=== PATIENT | female | born 1980 | race Caucasian/White ===

== ENCOUNTER 2017-03-22 11:24 | Emergency (ER) | payer MEDICAID, OTHER ==
[~2017-03-22] VITALS: Ht 167.6 cm; Wt 52.0 kg
[~2017-03-22 11:24] MED LIST: ALBU8.5H5 IH; [UNRECOGNIZED DRUG - CODE] PO
[2017-03-22 11:25] VITALS: Ht 167.6 cm; Wt 52.0 kg
--- NOTE | 2017-03-22 11:28 | NUR ---
DR NELSON IN
--- OUTSIDE RECORDS SUMMARY | 2017-03-22 11:28 | XMS REPORT ---
Author Author GENERATED, SYSTEM Organization Unknown Address Unknown Phone Unavailable Care Team Providers Care Golf Ball Molder Name Role Phone UNASSIGNED DOCTOR , DOCTOR PP [phone] Reason For Visit Chief Complaint SUBCUTANEOUS MASS - LIPUMA? Social History Functional Status Vital Signs Results Problems Encounter Diagnosis No relevant problems exist. Encounters Encounter Diagnosis No relevant problems exist. Plan of Care Procedures No relevant procedures performed. Immunizations No immunizations administered or ordered. Hospital Course Hospital Discharge Instructions Allergies, Adverse Reactions, Alerts * Latex Allergy has not been assessed. * IV Contrast Allergy has not been assessed. Medication Medication reconciliation has not been performed.
--- OUTSIDE RECORDS SUMMARY | 2017-03-22 11:28 | XMS REPORT ---
Author Author FriendBrook [employer] Address Unknown Phone Unavailable Care Team Providers Care Hospitality Internship Name Role Phone Friend, Brook CP Unavailable Allergies No Known Allergies Problems Problem Type Condition Code Onset Dates Condition Status Problem Anxiety and depression F41.9 Active Problem Mild persistent asthma J45.30 Active Problem Bipolar disorder F31.9 Active Problem Unspecified lump in breast N63 Active Problem Cigarette smoker F17.210 Active Medications No Known Medications Results No Known Results Summary Purpose eClinicalWorks Submission
--- OUTSIDE RECORDS SUMMARY | 2017-03-22 11:28 | XMS REPORT ---
Author Author Friend, Brook Organization [employer] Address Unknown Phone Unavailable Care Team Providers Care Falsework Builder Name Role Phone Friend, Brook CP Unavailable Allergies, Adverse Reactions, Alerts Substance Reaction Event Type Neurontin Info Not Available Drug Allergy Darvocet A500 Info Not Available Drug Allergy Chantix vomiting Drug Allergy Problems Problem Type Condition Code Onset Dates Condition Status Assessment Vaginal discharge N89.8 Active Assessment Screening for HIV (human immunodeficiency virus) Z11.4 Active Assessment Need for hepatitis B screening test Z11.59 Active Assessment Needs flu shot Z23 Active Problem Anxiety and depression F41.9 Active Problem Mild persistent asthma J45.30 Active Problem Bipolar disorder F31.9 Active Assessment Screening for chlamydial disease Z11.8 Active Assessment Screen for STD (sexually transmitted disease) Z11.3 Active Problem Unspecified lump in breast N63 Active Problem Cigarette smoker F17.210 Active Medications Medication Code System Code Instructions Start Date End Date Status Dosage Misc. Devices NDC 0 . spacer for inhaler dx: J45.20 Aug 30, 2015 as directed Risperidone [facility] [address]-58 2 MG Orally Once a day April 25, 2016 1 tablet Estradiol [facility] 19369020372 1 TAKE 1 TABLET BY MOUTH DAILY ProAir HFA [facility] 01352911069 108 (90 Base) MCG/ACT Inhalation every 4 hrs prn 2 puffs as needed Procedures Procedure Coding System Code Date IMMUNIZATION ADMIN CPT-4 25430 Oct 10, 2016 CHYLMD TRACH, DNA, AMP PROBE CPT-4 39267 Oct 10, 2016 FLU VACC 4 RAAD 3 YRS PLUS IM CPT-4 17914 Oct 10, 2016 OFFICE VISIT EST PATIENT LEVEL 3 CPT-4 44250 Oct 10, 2016 ACUTE HEPATITIS PANEL CPT-4 84538 Oct 10, 2016 SMEAR, WET MOUNT, SALINEINK CPT-4 23740 Oct 10, 2016 N.GONORRHOEAE, DNA, AMP PROB CPT-4 74225 Oct 10, 2016 HIV-1HIV-2 1 RESULT ANTBDY CPT-4 97587 Oct 10, 2016 SYPHILIS TEST NON-TREP QUAL CPT-4 16730 Oct 10, 2016 Vital Signs Date/Time: Oct 10, 2016 BMI 18.85 Index Weight 116.8 lbs Height 5 ft 6 in in Blood Pressure Diastolic 84 mm Hg Blood Pressure Systolic 126 mm Hg Cardiac Monitoring Heart Rate 77 /min Temperature 98.6 F Oximetry 98 % Respiratory Rate 18 /min Results Name Result Date Reference Range Unit Abnormality Flag RPR (use Z11.3) ----RPR Non-reactive 20161010 Chlam/GC Male/Fem Ncwa-gg-Ajtf Urine (genprobe) C-Z11.8,G-Z11.3 ----Chlam/ GC Nucleic Acid Screen Source: Genital Collected: 10/10/16 15:13 [id number] OTHER-IMMUNIZATION ADMIN HIV 1&2 (use Z11.4) ----HIV Antigen/Antibody Combo Negative [id number] Hepatitis Panel (use Z11.59 to screen) ----Hepatitis C Total Antibody Negative 20161010 ----Hepatitis A Antibody IGM Negative 20161010 ----Hepatitis B Surface Antigen Negative 20161010 ----Hepatitis Core Ab IGM Negative 20161010 Genital Wet Prep - send out ----Genital Wet Prep Source: Genital Collected: 15:13 [id number] Immunizations Vaccine Administration Date *Fluzoeugenia, private, 3+ yrs, 0.5mL, quad vial, Oct 10, 2016 Summary Purpose eClinicalWorks Submission
--- OUTSIDE RECORDS SUMMARY | 2017-03-22 11:28 | XMS REPORT ---
Author Author Friend, Brook Fountain [employer] Address Unknown Phone Unavailable Care Team Providers Care Design Quality Engineer Name Role Phone Friend, Brook CP Unavailable Allergies No Known Allergies Problems Problem Type Condition Code Onset Dates Condition Status Problem Anxiety and depression F41.9 Active Problem Mild persistent asthma J45.30 Active Problem Bipolar disorder F31.9 Active Problem Unspecified lump in breast N63 Active Problem Cigarette smoker F17.210 Active Medications Medication Code System Code Instructions Start Date End Date Status Dosage Metronidazole [facility] [address]-24 500 MG Orally BID May 30, 2016 June 06, 2016 1 tablet Results No Known Results Summary Purpose eClinicalWorks Submission
--- OUTSIDE RECORDS SUMMARY | 2017-03-22 11:28 | XMS REPORT ---
Author Carlie Beltrán Organization [employer] Address Unknown Phone Unavailable Care Team Providers Care Sprinkling System Installer Name Role Phone Carlie Chavez CP Unavailable Allergies, Adverse Reactions, Alerts Substance Reaction Event Type Neurontin Info Not Available Drug Allergy Darvocet A500 Info Not Available Drug Allergy Chantix vomiting Drug Allergy Problems Problem Type Condition Code Onset Dates Condition Status Problem Anxiety and depression F41.9 Active Problem Mild persistent asthma J45.30 Active Problem Bipolar disorder F31.9 Active Assessment Acute bronchitis J20.9 Active Problem Unspecified lump in breast N63 Active Problem Cigarette smoker F17.210 Active Medications Medication Code System Code Instructions Start Date End Date Status Dosage PredniSONE [facility] [address]-75 20 MG Orally Once a day Jun 19, 2016 Jun 24, 2016 2 tablets ProAir HFA [facility] [address]-30 108 (90 Base) MCG/ACT Inhalation every 4 hrs prn 2 puffs as needed Promethazine-Codeine [facility] [address]-04 6.25-10 MG/5ML Orally every 6 hrs Jun 19, 2016 Jun 24, 2016 5 ml as needed Misc. Devices ND 0 . spacer for inhaler dx: J45.20 Aug 30, 2015 as directed Risperidone [facility] [address]-08 2 MG Orally Once a day April 25, 2016 1 tablet Azithromycin [facility] [address]-18 250 MG Orally Once a day Jun 19, 2016 Jun 24, 2016 2 tablets on the first day, then 1 tablet daily for 4 days Albuterol Sulfate HFA [facility] 31127704326 90 mcg inhaler aerosol Inhalation every 4 hrs prn inhale 2 puffs as needed every 4 hours for wheezeing Estradiol [facility] 78969715184 1 TAKE 1 TABLET BY MOUTH ONCE DAILY Procedures Procedure Coding System Code Date OFFICE VISIT EST PATIENT LEVEL 4 CPT-4 87090 Jun 19, 2016 Vital Signs Date/Time: Jun 19, 2016 BMI 18.60 Index Weight 115 lb 4 oz lbs Height 5 ft 6 in in Blood Pressure Diastolic 70 mm Hg Blood Pressure Systolic 112 mm Hg Cardiac Monitoring Heart Rate 70 /min Temperature 98.2 F Oximetry 99 % Results No Known Results Summary Purpose eClinicalWorks Submission
--- OUTSIDE RECORDS SUMMARY | 2017-03-22 11:28 | XMS REPORT ---
Author Author Katie Youngblood Organization [facility] Address [address] [facility] [place] [address] Care Team Providers Care Shell Sorter Name Role Phone Katie Youngblood Unavailable [phone] PROBLEMS Type Condition ICD9-CM Code [id number] Code Onset Dates Condition Status SNOMED Code Assessment Abnormal urine finding R82.90 Jan, Active 182844999 Assessment Urinary frequency R35.0 Jan, Active 043282327 Problem Bipolar disorder F31.9 Active 21246546 Problem Anxiety and depression F41.9 Active 651580917 Problem Cigarette smoker F17.210 Active 76930494 Assessment Vomiting R11.10 Jan, Active 707796442 Problem Mild persistent asthma J45.30 Active 069472650 Problem Unspecified lump in breast N63 Active 78497490 ALLERGIES Substance Reaction Event Type Date Status Neurontin Unknown Drug Allergy Jan, Active Darvocet A500 Unknown Drug Allergy Jan, Active Chantix vomiting Drug Allergy Jan, Active SOCIAL HISTORY No smoking Hx information available PLAN OF CARE Activity Details Pending Test CBC With Platelet and Differential Pending Test Comprehensive Metabolic Panel (CMP) Pending Test Urine Culture prn,Reason: VITAL SIGNS Height 5 ft 6 in in 2017-01-07 Weight 117 lb 8 oz lbs 2017-01-07 BMI 18.96 kg/m2 2017-01-07 Temperature 98.8 degrees Fahrenheit 2017-01-07 Heart Rate 67 /min 2017-01-07 Oximetry 98 % 2017-01-07 Blood pressure systolic 100 mm Hg 2017-01-07 Blood pressure diastolic 68 mm Hg 2017-01-07 MEDICATIONS Medication Instructions Dosage Frequency Start Date End Date Duration Status ProAir HFA 108 (90 Base) MCG/ACT Inhalation every 4 hrs prn 2 puffs as needed 90 Active Estradiol 1 TAKE 1 TABLET BY MOUTH DAILY 90 Active Misc. Devices . spacer for inhaler dx: J45.20 as directed Aug, 30 days Active Risperidone 2 MG Orally Once a day 1 tablet 24h Apr, 30 day(s) Active AZO Urinary Pain Relief 95 MG Orally Three times a day 2 tablets after meals 8h Jan, Active Promethazine HCl 25 MG Orally every 8 hrs 1 tablet as needed 8h Jan, Jan, 10 days Active Ciprofloxacin HCl 250 MG Orally every 12 hrs 1 tablet 12h Jan, Jan, 3 days Active RESULTS Name Result Date Reference Range Urinalysis (UA) - IH 2017-01-07 Color yellow Character cloudy Blood trace-intact Glucose neg 0 - 0 Bilirubin small Ketones neg 0 - 0 Specific [place] 1.025 pH 6.5 Leukocytes neg Protein 30mg 0 - 0 Nitrates neg Urobilirubin 0.2 0.2 - 1 Venipuncture 2017-01-07 CBC With Platelet and Differential 2017-01-07 WBC 7.5 4.8-10.8 RBC 4.61 4.00-5.20 HGB 14.2 12.0-18.0 HCT 43.0 37.0-47.0 MCV 93.3 82.0-99.0 MCH 30.8 27.0-32.0 MCHC 33.0 32.0-36.0 RDW 13.2 11.5-14.5 MPV 10.8 8.8-14.8 Platelet Count 202 150-400 Immature Granulocytes 0.1 0.0-1.0 Absolute Neutrophils 5.04 1.90-7.00 Absolute Lymphocytes 1.81 0.80-3.30 Absolute Monocytes 0.45 0.30-1.00 Absolute Eosinophils 0.18 0.00-0.50 Absolute Basophils 0.03 0.00-0.20 Neutrophils 67 51-75 Lymphocytes 24 20-46 Monocytes 6 4-11 Eosinophils 2 0-4 Basophils 0 0-2 Comprehensive Metabolic Panel (CMP) 2017-01-07 Glucose 85 70-99 BUN 17 7-19 Creatinine 0.79 0.57-1.11 Calcium 9.2 8.4-10.2 Sodium 140 135-144 Potassium 4.2 3.5-5.2 Chloride 106 99-111 CO2 29 22-31 Albumin 4.3 3.5-5.0 Bilirubin Total 0.9 0.2-1.2 Alkaline Phosphatase 55 40-150 Protein 6.8 6.1-7.7 ALT (SGPT) 11 0-55 AST (SGOT) 15 5-34 Anion Gap 5 3-20 Globulin 2.5 1.8-4.0 eGFR 2017-01-07 eGFR >60 >60 PROCEDURES Procedure Date Ordered Related Diagnosis Body Site URINALYSIS NONAUTO WO SCOPE January 07, 2017 URINE CULTURECOLONY COUNT January 07, 2017 COMPLETE CBC WAUTO DIFF WBC January 07, 2017 OFFICE VISIT EST PATIENT LEVEL 4 January 07, 2017 ROUTINE VENIPUNCTURE January 07, 2017 COMPREHEN METABOLIC PANEL January 07, 2017 IMMUNIZATIONS No Known Immunizations
--- OUTSIDE RECORDS SUMMARY | 2017-03-22 11:28 | XMS REPORT | Continuity of Care Document ---
Author Author [facility] Organization [facility] Address Unknown Phone Unavailable Care Team Providers Care Cook Mayonnaise Name Role Phone Unverified, Unverified Primary Care Physician Unavailable Source Comments Some departments are not documenting in the electronic medical record. If you do not see the information that you expected, contact Release of Information in the Health Information Management department at [phone] for further assistance in locating additional records.[facility] Active Allergies and Adverse Reactions Allergen Noted Date Severity Reactions Comments Darvocet 04/04/2009 Medium NAUSEA AND VOMITING Neurontin 04/04/2009 High SEIZURES Current Medications Prescription Sig. Disp. Refills Start End Date Status Date multivitamin (THERAGRAN) Take 1 Tab by mouth Active per tablet Daily. docusate (COLACE) 100 mg Take 100 mg by mouth Active capsule Twice Daily. folic acid (FOLVITE) 1 mg Take 1 mg by mouth Daily. Active tablet Active Problems Comments Currently Estimated Date of Delivery Yes No additional problems on file Social History Tobacco Use Types Packs/Day Years Used Date Former Smoker Alcohol Use Drinks/Week oz/Week Comments No Last Filed Vital Signs Vital Sign Reading Time Taken Blood Pressure 100/53 04/05/2009 8:15 AM CDT Pulse 58 04/05/2009 8:15 AM CDT Temperature 36.9 C (98.5 F) 04/04/2009 9:20 PM CDT Respiratory Rate - - Height 0.66 m (2' 1.98") 04/04/2009 9:20 PM CDT Weight 61.236 kg (135 lb) 04/04/2009 9:20 PM CDT Body Mass Index 140.58 04/04/2009 9:20 PM CDT Oxygen Saturation - - Plan of Care Health Maintenance Due Date Last Done Comments Physical (Comprehensive) 1989 Exam Pertussis Vaccine 1993 Tetanus Vaccine 1999 Cervical Cancer Screening 2003 Influenza Vaccine 07/10/2017 Results from Last 3 Months Not on file
--- OUTSIDE RECORDS SUMMARY | 2017-03-22 11:28 | XMS REPORT ---
Author Author FriendBrook [employer] Address Unknown Phone Unavailable Care Team Providers Care Merchandising Coordinator Name Role Phone Friend, Brook CP Unavailable Allergies No Known Allergies Problems Problem Type Condition Code Onset Dates Condition Status Problem Anxiety and depression F41.9 Active Problem Mild persistent asthma J45.30 Active Problem Bipolar disorder F31.9 Active Problem Unspecified lump in breast N63 Active Problem Cigarette smoker F17.210 Active Medications Medication Code System Code Instructions Start Date End Date Status Dosage ProAir HFA [facility] 11827282500 108 (90 Base) MCG/ACT Inhalation every 4 hrs prn 2 puffs as needed Albuterol Sulfate HFA [facility] 64218899294 90 mcg inhaler aerosol Inhalation every 4 hrs prn inhale 2 puffs as needed every 4 hours for wheezeing Misc. Devices ND 0 . spacer for inhaler dx: J45.20 Aug 30, 2015 as directed Risperidone [facility] [address]-81 2 MG Orally Once a day April 25, 2016 1 tablet Estradiol [facility] 77097536472 1 TAKE 1 TABLET BY MOUTH DAILY Results No Known Results Summary Purpose eClinicalWorks Submission
--- OUTSIDE RECORDS SUMMARY | 2017-03-22 11:28 | XMS REPORT ---
Author Author Friend, Brook Fountain [employer] Address Unknown Phone Unavailable Care Team Providers Care Special Education Associate Name Role Phone Friend, Brook CP Unavailable Allergies, Adverse Reactions, Alerts Substance Reaction Event Type Neurontin Info Not Available Drug Allergy Darvocet A500 Info Not Available Drug Allergy Chantix vomiting Drug Allergy Problems Problem Type Condition Code Onset Dates Condition Status Problem Mild intermittent asthma J45.20 Active Problem Cigarette smoker F17.210 Active Problem Unspecified lump in breast N63 Active Assessment Screen for STD (sexually transmitted disease) Z11.3 Active Assessment Encounter for routine gynecological examination Z01.419 Active Assessment Vaginal pruritus L29.8 Active Medications Medication Code System Code Instructions Start Date End Date Status Dosage Estradiol ND 38381587917 1 TAKE 1 TABLET BY MOUTH ONCE DAILY Misc. Devices ND 0 . spacer for inhaler dx: J45.20 Aug 30, 2015 as directed Albuterol Sulfate HFA [facility] 71710303461 90 mcg inhaler aerosol INHALE 2 PUFFS NEEDED EVERY 4 HOURS FOR WHEEZEING Wellbutrin XL [facility] [address]-69 150 MG Orally twice a day Aug 30, 2015 1 tablet in the morning ProAir HFA [facility] [address]-91 108 (90 Base) MCG/ACT Inhalation every 4 hrs prn 2 puffs as needed Procedures Procedure Coding System Code Date N.GONORRHOEAE, DNA, AMP PROB CPT-4 17385 Nov 27, 2015 SMEAR, WET MOUNT, SALINEINK CPT-4 63223 Nov 27, 2015 CHYLMD TRACH, DNA, AMP PROBE CPT-4 51938 Nov 27, 2015 EST PREV AGE 18-39 CPT-4 24101 Nov 27, 2015 SYPHILIS TEST NON-TREP QUAL CPT-4 97173 Nov 27, 2015 HIV-1HIV-2 1 RESULT ANTBDY CPT-4 43954 Nov 27, 2015 ROUTINE VENIPUNCTURE CPT-4 92545 Nov 27, 2015 ACUTE HEPATITIS PANEL CPT-4 52954 Nov 27, 2015 Vital Signs Date/Time: Nov 27, 2015 BMI 19.08 Index Weight 118.2 lbs Height 66 in Blood Pressure Diastolic 72 mm Hg Blood Pressure Systolic 110 mm Hg Cardiac Monitoring Heart Rate 60 /min Temperature 98.6 F Oximetry 99 % Respiratory Rate 16 /min Results Name Result Date Reference Range Unit Abnormality Flag HIV 1&2 ----HIV Antigen/Antibody Combo Negative 20151127 RPR ----RPR Non-reactive 20151127 Chlam/GC Male/Female Hcao-gf-Lqjk Urine (genprobe) ----Chlam/ GC Nucleic Acid Screen Source: Genital Collected: 11/27/15 17:04 [id number] Hepatitis Panel ----Hepatitis C Total Antibody Negative 20151127 ----Hepatitis B Surface Antigen Negative 20151127 ----Hepatitis A Antibody IGM Negative 20151127 ----Hepatitis Core Ab IGM Negative 20151127 Genital Wet Prep - send out ----Genital Wet Prep Source: Genital Collected: 17:04 [id number] Venipuncture Summary Purpose eClinicalWorks Submission
--- OUTSIDE RECORDS SUMMARY | 2017-03-22 11:28 | XMS REPORT ---
Author Author Friend, Brook Fountain [facility] Address [address] [place], [place] [address] Care Team Providers Care Resident Program Specialist Name Role Phone FriendBrook Unavailable [phone] PROBLEMS Type Condition ICD9-CM Code [id number] Code Onset Dates Condition Status SNOMED Code Problem Bipolar disorder F31.9 Active 41089690 Problem Anxiety and depression F41.9 Active 770915724 Problem Cigarette smoker F17.210 Active 27524490 Assessment Bacterial vaginosis N76.0 Nov, Active 021366665 Problem Mild persistent asthma J45.30 Active 656952333 Problem Unspecified lump in breast N63 Active 11908888 ALLERGIES Unknown Allergies SOCIAL HISTORY No smoking Hx information available PLAN OF CARE VITAL SIGNS MEDICATIONS Medication Instructions Dosage Frequency Start Date End Date Duration Status Metronidazole 500 MG Orally Twice a day 1 tablet 12h Nov, Nov, 07 days Active Metronidazole 0.75 % Vaginal once a week for 8 weeks 1 application at bedtime Nov, March, 60 days Active RESULTS No Results PROCEDURES No Known procedures IMMUNIZATIONS No Known Immunizations
--- OUTSIDE RECORDS SUMMARY | 2017-03-22 11:28 | XMS REPORT ---
Author Author Friend, Brook Fountain [facility] Address [address] [facility] [place] [id number] Care Team Providers Care Mold Stamper Name Role Phone Friend, Brook Unavailable [phone] PROBLEMS Type Condition ICD9-CM Code [id number] Code Onset Dates Condition Status SNOMED Code Assessment Underweight R63.6 Feb, Active 277986199 Problem Unspecified lump in breast N63 Active 33609942 Problem Cigarette smoker F17.210 Active 41117945 Assessment Screening for thyroid disorder Z13.29 Feb, Active 394297355 Problem Constipation K59.00 Active 98480880 Problem Anxiety disorder F41.9 Active 277191095 Problem Anxiety and depression F41.9 Active 046855614 Problem Mild persistent asthma J45.30 Active 850481266 Problem Spotting N92.0 Active 3504171 Problem Bipolar disorder F31.9 Active 62203784 ALLERGIES Substance Reaction Event Type Date Status Neurontin Unknown Drug Allergy Feb, Active Darvocet A500 Unknown Drug Allergy Feb, Active Chantix vomiting Drug Allergy Feb, Active SOCIAL HISTORY No smoking Hx information available PLAN OF CARE Activity Details Pending Test Free T4 Pending Test Total T3 Pending Test TSH Pending Test Venipuncture 6 Months, prn,Reason: VITAL SIGNS Height 5 ft 6 in in 2017-02-13 Weight 118 lbs 2017-02-13 BMI 19.04 kg/m2 2017-02-13 Temperature 98.4 degrees Fahrenheit 2017-02-13 Heart Rate 57 /min 2017-02-13 Respiratory Rate 18 /min 2017-02-13 Oximetry 98 % 2017-02-13 Blood pressure systolic 112 mm Hg 2017-02-13 Blood pressure diastolic 74 mm Hg 2017-02-13 MEDICATIONS Medication Instructions Dosage Frequency Start Date End Date Duration Status BusPIRone HCl 10 MG Orally Twice a day 1 tablet 12h Feb, 30 days Active AZO Urinary Pain Relief 95 MG Orally Three times a day 2 tablets after meals 8h Jan, Active Misc. Devices . spacer for inhaler dx: J45.20 as directed Aug, 30 days Active Risperidone 2 MG Orally Once a day 1 tablet 24h Apr, 30 day(s) Active Estradiol 1 TAKE 1 TABLET BY MOUTH DAILY 30 Active ProAir HFA 108 (90 Base) MCG/ACT Inhalation every 4 hrs prn 2 puffs as needed 30 Active RESULTS No Results PROCEDURES Procedure Date Ordered Related Diagnosis Body Site ASSAY OF FREE THYROXINE February 13, 2017 ASSAY, TRIIODOTHYRONINE (T3) February 13, 2017 ROUTINE VENIPUNCTURE February 13, 2017 ASSAY THYROID STIM HORMONE February 13, 2017 OFFICE VISIT EST PATIENT LEVEL 3 February 13, 2017 IMMUNIZATIONS No Known Immunizations
--- OUTSIDE RECORDS SUMMARY | 2017-03-22 11:28 | XMS REPORT ---
Author Author FriendBrook [employer] Address Unknown Phone Unavailable Care Team Providers Care Quarter Section Ironer Name Role Phone FriendBrook CP Unavailable Allergies No Known Allergies Problems Problem Type Condition Code Onset Dates Condition Status Problem Mild intermittent asthma J45.20 Active Problem Cigarette smoker F17.210 Active Problem Unspecified lump in breast N63 Active Medications No Known Medications Results No Known Results Summary Purpose eClinicalWorks Submission
--- OUTSIDE RECORDS SUMMARY | 2017-03-22 11:28 | XMS REPORT ---
Author Author Friend, Brook Fountain [facility] Address [address] [place], [place] [address] Care Team Providers Care Health Care Attorney Name Role Phone FriendBrook Unavailable [phone] PROBLEMS Type Condition ICD9-CM Code PZC19-GV Code Onset Dates Condition Status SNOMED Code Problem Unspecified lump in breast N63 Active 78610761 Problem Cigarette smoker F17.210 Active 38296781 Problem Constipation K59.00 Active 03650923 Problem Anxiety disorder F41.9 Active 976026801 Problem Anxiety and depression F41.9 Active 013978022 Problem Mild persistent asthma J45.30 Active 886563362 Problem Spotting N92.0 Active 2173250 Problem Bipolar disorder F31.9 Active 06328469 ALLERGIES Unknown Allergies SOCIAL HISTORY No smoking Hx information available PLAN OF CARE VITAL SIGNS MEDICATIONS Medication Instructions Dosage Frequency Start Date End Date Duration Status Flagyl 500 MG Orally BID 1 tablet 12h Jan, 7 days Active RESULTS No Results PROCEDURES No Known procedures IMMUNIZATIONS No Known Immunizations
--- OUTSIDE RECORDS SUMMARY | 2017-03-22 11:28 | XMS REPORT ---
Author Author Friend, Brook Fountain [facility] Address [address] [place], [place] [address] Care Team Providers Care Data Base Administrator Name Role Phone FriendBrook Unavailable [phone] PROBLEMS Type Condition ICD9-CM Code [id number] Code Onset Dates Condition Status SNOMED Code Problem Bipolar disorder F31.9 Active 69357724 Problem Anxiety and depression F41.9 Active 629994832 Problem Cigarette smoker F17.210 Active 66193765 Problem Mild persistent asthma J45.30 Active 690456984 Problem Unspecified lump in breast N63 Active 68489898 ALLERGIES Unknown Allergies SOCIAL HISTORY No smoking Hx information available PLAN OF CARE VITAL SIGNS MEDICATIONS Medication Instructions Dosage Frequency Start Date End Date Duration Status Metronidazole 500 MG Orally Twice a day 1 tablet 12h 14 Oct, 2016 Oct, 07 days Active RESULTS No Results PROCEDURES No Known procedures IMMUNIZATIONS No Known Immunizations
--- OUTSIDE RECORDS SUMMARY | 2017-03-22 11:28 | XMS REPORT | Continuity of Care Document ---
Author Author [facility] Organization [facility] Address Unknown Phone Unavailable Allergies Medications Problems Procedures Results Encounters ACCT No. Visit Date/Time Discharge Status Pt. Type Provider Facility Loc./Unit Complaint [id number] 11/15/2013 10:02:00 11/15/2013 23 :59:59 CLS Outpatient
--- OUTSIDE RECORDS SUMMARY | 2017-03-22 11:28 | XMS REPORT | Continuity of Care Document ---
Author Author Iza Cook Organization [facility] Address [address] [facility] [place] [address] Phone Care Team Providers Care Special Effects Designer Name Role Phone Shanell Ferris TARIQ Unavailable Payers Payer name Insurance type Covered libertarian ID Authorization(s) Unknown Problems Condition Effective Dates (start - stop) Clinical Status Lump of skin - *Chronic Depression - *Chronic Upper Respiratory Infection, Acute - *Acute Tobacco abuse - *Chronic Follow-up examination, following other surgery - *Stable Hx estrogen therapy - *Stable Bronchitis, Acute - *Acute Asthma - *Chronic Vomiting - *Acute Post OP visit - *Stable Hot flashes due to surgical menopause - *Symptomatic Hormone replacement therapy (postmenopausal) - *Symptomatic Sinusitis - *Acute DRUG ABUSE NEC-UNSPEC - ASTHMA NOS - ALLERGY, UNSPECIFIED - Pelvic pain - *Symptomatic Dysmenorrhea - *Symptomatic Dyspareunia, female - *Symptomatic Weight loss - Mild Appetite loss - Mild Depression - *Chronic Asthma - *Acute Pelvic pain - *Poor control Dyspareunia, female - *Symptomatic Follow-up examination, following other surgery - *Stable HX ESTROGEN THERAPY - *Stable Weight loss, unintentional - *Acute Submental adenopathy - *Chronic Eye pain - *Acute Family History Family Member Diagnosis Age At Onset Status Unknown Social History Social History Element Description Quantity Unknown Allergies, Adverse Reactions, Alerts Substance Reaction Severity Status DOXYCYCLINE Stomach Pain Unknown GABAPENTIN muscle spasms/vomiting Unknown OXYCODONE HCL Unknown ACETAMINOPHEN Unknown Medications Medication Instructions Dosage Effective Dates (start - stop) Status CALCIUM (unknown strength) take 1 Tablet by Oral route 2 times every day - Active Prozac 20 mg capsule take 1 Capsule (20MG) by oral route every day in the morning 20 MG - Active Zithromax Z-Santiago 250 mg tablet take 2 tablet (500MG) by oral route every day for 1 day then 1 tablet (250 mg) by oral route once daily for 4 days 500 MG - No Longer Active Vivelle-Dot 0.1 mg/24 hr transdermal patch apply 1 patch by transdermal route 2 times every week 0 - Active ProAir HFA 90 mcg/actuation aerosol inhaler Inhale 1-2 puffs by mouth every 4 to 6 hours as needed. - Active Immunizations Vaccine Date Status Comments Unknown Results Test Name Date and Time Measure Units Reference Range Abnormal Flag Comments Panel Description: Rapid Strep-throat Rapid Strep-throat 11:05:00 Negative Negative Panel Description: Rapid Strep-throat Rapid Strep-throat 11:05:00 Negative Negative Panel Description: Strep Culture-AMS Group A Strep Culture 11:05:00 Source: Throat Collected: 11/15/13 11:05 Site: Received : 11/15/13 15:17 Order#: [id number] is the Site? : THROATGroup A Strep Culture PRELIM 11/16/13 07:49 No Beta to dateKEY FOR RESULTS: * - NEW RESULT - RESULT WAS MODIFIED AFTER [facility]AL [facility] [address] [facility] [address] Welding Machine Operator Resistance Adan Ramos MD Panel Description: Strep Culture-AMS Group A Strep Culture 11:05:00 Source: Throat Collected: 11/15/13 11:05 Site: Received : 11/15/13 15:17 Order#: [id number] is the Site? : THROATGroup A Strep Culture FINAL 11/16/13 16:40 No Group A Strep (Strep pyogenes) isolatedKEY FOR RESULTS: * - NEW RESULT - RESULT WAS MODIFIED AFTER FINAL STATUS SETPerform at [facility] [address] [facility] [address] Welding Machine Operator Resistance Adan Ramos MD Vital Signs Date / Time: Height Weight Pulse Rate Blood Pressure Temperature /10:09:00 66.00 in 120.60 lbs 72 /min 100/60 mm[Hg] 96.9 F Procedures Procedure Date Unknown Encounters Encounter Location Date Patient Visit [facility] Patient Visit [facility] Patient Visit [facility] Patient Visit [facility] Patient Visit [facility] Patient Visit [facility] Patient Visit [facility] Patient Visit [facility] Patient Visit [facility] Patient Visit [facility] Patient Visit [facility] Patient Visit [facility] Patient Visit [facility] Advance Directives Directive Effective Date Unknown
--- OUTSIDE RECORDS SUMMARY | 2017-03-22 11:28 | XMS REPORT ---
Author Author Friend, Brook Fountain [employer] Address Unknown Phone Unavailable Care Team Providers Care Reset Merchandiser Name Role Phone Friend, Brook CP Unavailable Allergies No Known Allergies Problems Problem Type Condition Code Onset Dates Condition Status Problem Anxiety and depression F41.9 Active Problem Mild persistent asthma J45.30 Active Problem Bipolar disorder F31.9 Active Problem Unspecified lump in breast N63 Active Problem Cigarette smoker F17.210 Active Medications Medication Code System Code Instructions Start Date End Date Status Dosage ProAir HFA [facility] [address]-19 108 (90 Base) MCG/ACT Inhalation every 4 hrs prn 2 puffs as needed Results No Known Results Summary Purpose eClinicalWorks Submission
--- OUTSIDE RECORDS SUMMARY | 2017-03-22 11:28 | XMS REPORT ---
Author Author FriendBrook [employer] Address Unknown Phone Unavailable Care Team Providers Care Pension Administrator Name Role Phone FriendBrook CP Unavailable Allergies No Known Allergies Problems Problem Type Condition Code Onset Dates Condition Status Problem Mild intermittent asthma J45.20 Active Problem Cigarette smoker F17.210 Active Problem Unspecified lump in breast N63 Active Medications No Known Medications Results No Known Results Summary Purpose eClinicalWorks Submission
--- OUTSIDE RECORDS SUMMARY | 2017-03-22 11:28 | XMS REPORT ---
Author Author Sherri Sood [facility] Address Unknown Phone Unavailable Care Team Providers Care Accounts Payable Analyst Name Role Phone Sherri Sood CP Unavailable Allergies No Known Allergies Problems Problem Type Condition ICD-9 Code Onset Dates Condition Status Problem Surgical menopause 627.4 Active Problem Smoker 305.1 Active Problem Asthma with allergic rhinitis with acute exacerbation 493.02 Active Problem Asthma 493.90 Active Problem Breast lump 611.72 Active Medications No Known Medications Results No Known Results Summary Purpose eClinicalWorks Submission
--- OUTSIDE RECORDS SUMMARY | 2017-03-22 11:28 | XMS REPORT ---
Author Author Friend, Brook Fountain [facility] Address [address] [place], [place] [address] Care Team Providers Care Engineering Geologist Name Role Phone FriendBrook Unavailable [phone] PROBLEMS Type Condition ICD9-CM Code ALH50-MA Code Onset Dates Condition Status SNOMED Code Problem Bipolar disorder F31.9 Active 71916672 Problem Anxiety and depression F41.9 Active 387115163 Problem Cigarette smoker F17.210 Active 33299270 Problem Mild persistent asthma J45.30 Active 313684137 Problem Unspecified lump in breast N63 Active 62108262 ALLERGIES Unknown Allergies SOCIAL HISTORY No smoking Hx information available PLAN OF CARE VITAL SIGNS MEDICATIONS Medication Instructions Dosage Frequency Start Date End Date Duration Status ProAir HFA 108 (90 Base) MCG/ACT Inhalation every 4 hrs prn 2 puffs as needed 90 Active RESULTS No Results PROCEDURES No Known procedures IMMUNIZATIONS No Known Immunizations
[2017-03-22] MEDS ORDERED: NORMAL SALINE 1,000 ML IV ONE (11:29)
--- OUTSIDE RECORDS SUMMARY | 2017-03-22 11:29 | XMS REPORT ---
Author Author FriendBrook [employer] Address Unknown Phone Unavailable Care Team Providers Care Information Resource Consultant Name Role Phone Friend, Brook MARTE Unavailable Allergies No Known Allergies Problems Problem Type Condition Code Onset Dates Condition Status Problem Mild intermittent asthma J45.20 Active Problem Cigarette smoker F17.210 Active Problem Unspecified lump in breast N63 Active Medications Medication Code System Code Instructions Start Date End Date Status Dosage Metronidazole [facility] N[facility] [address]-63 500 MG Orally Twice a day Nov 28, 2015 Dec 05, 2015 1 tablet Results No Known Results Summary Purpose eClinicalWorks Submission
--- OUTSIDE RECORDS SUMMARY | 2017-03-22 11:29 | XMS REPORT ---
Author Author Giuliana Escobar Organization [employer] Address Unknown Phone Unavailable Care Team Providers Care Shipyard Helper Name Role Phone Giuliana Escobar CP Unavailable Allergies, Adverse Reactions, Alerts Substance Reaction Event Type Neurontin Info Not Available Drug Allergy Darvocet A500 Info Not Available Drug Allergy Problems Problem Type Condition ICD-9 Code Onset Dates Condition Status Problem Smoker 305.1 Active Problem Asthma 493.90 Active Problem Surgical menopause 627.4 Active Assessment Surgical menopause 627.4 Active Assessment Smoker 305.1 Active Problem Breast lump 611.72 Active Assessment Asthma 493.90 Active Medications Medication Code System Code Instructions Start Date End Date Status Dosage ProAir HFA [facility] [address]-14 108 (90 Base) MCG/ACT Inhalation every 4 hrs 2 puffs as needed Zithromax Z-Santiago [facility] [address]-79 250 MG Orally Once a day January 17, 2015 January 22, 2015 2 tablets on the first day, then 1 tablet daily for 4 days Omeprazole [facility] [address]-36 20 MG Orally once a day Oct 24, 2014 1 capsule Albuterol Sulfate HFA [facility] [address]-59 108 (90 Base) MCG/ACT Inhalation every 4 hrs Aug 30, 2014 2 puffs as needed PredniSONE [facility] [address]-84 10 MG Orally Once a day January 17, 2015 January 24, 2015 5 tab for 1 d, 4 tab for 1 d, 3 tab for 1 d, 2 tab for 1 d, 1 tb for 3 Estradiol [facility] [address]-52 1 MG Orally once a day January 17, 2015 1 tablet Procedures Procedure Coding System Code Date OFFICE VISIT EST PATIENT LEVEL 3 CPT-4 68364 January 17, 2015 Vital Signs Date/Time: January 17, 2015 BMI 19.75 Index Weight 122.4 lbs Height 66 in Blood Pressure Diastolic 74 mm Hg Blood Pressure Systolic 118 mm Hg Cardiac Monitoring Heart Rate 72 /min Temperature 98.2 F Respiratory Rate 18 /min Results No Known Results Summary Purpose eClinicalWorks Submission
--- OUTSIDE RECORDS SUMMARY | 2017-03-22 11:29 | XMS REPORT ---
Author Author Katie Youngblood Organization [facility] Address [address] [place], [place] [address] Care Team Providers Care Coke Still Cleaner Name Role Phone Katie Youngblood Unavailable [phone] PROBLEMS Type Condition ICD9-CM Code [id number] Code Onset Dates Condition Status SNOMED Code Problem Bipolar disorder F31.9 Active 22460802 Problem Anxiety and depression F41.9 Active 579068755 Problem Cigarette smoker F17.210 Active 85424191 Problem Mild persistent asthma J45.30 Active 806644057 Problem Unspecified lump in breast N63 Active 01211330 ALLERGIES Unknown Allergies SOCIAL HISTORY No smoking Hx information available PLAN OF CARE VITAL SIGNS MEDICATIONS Medication Instructions Dosage Frequency Start Date End Date Duration Status Flagyl 500 MG Orally BID 1 tablet 12h Jan, 7 days Active Risperidone 2 MG Orally Once a day 1 tablet 24h 17 Apr, 2016 30 day(s) Active ProAir HFA 108 (90 Base) MCG/ACT Inhalation every 4 hrs prn 2 puffs as needed 30 Active Estradiol 1 TAKE 1 TABLET BY MOUTH DAILY 30 Active RESULTS No Results PROCEDURES No Known procedures IMMUNIZATIONS No Known Immunizations
--- OUTSIDE RECORDS SUMMARY | 2017-03-22 11:29 | XMS REPORT ---
Author Author Giuliana Escobar Organization [employer] Address Unknown Phone Unavailable Care Team Providers Care J2Ee Consultant Name Role Phone Giuliana Escobar CP Unavailable Allergies, Adverse Reactions, Alerts Substance Reaction Event Type N.K.D.A. Info Not Available Non Drug Allergy Problems Problem Type Condition ICD-9 Code Onset Dates Condition Status Problem Breast lump 611.72 Active Assessment Asthma 493.90 Active Problem Asthma 493.90 Active Assessment Breast lump 611.72 Active Medications Medication Code System Code Instructions Start Date End Date Status Dosage Albuterol Sulfate HFA [facility] [address]-65 108 (90 Base) MCG/ACT Inhalation every 4 hrs Aug 30, 2014 Active 2 puffs as needed Zithromax Z-Santiago [facility] [address]-52 250 MG Orally Once a day Aug 30, 2014 Sep 04, 2014 Active 2 tablets on the first day, then 1 tablet daily for 4 days ProAir HFA [facility] [address]-24 108 (90 Base) MCG/ACT Inhalation every 4 hrs Active 2 puffs as needed Procedures Procedure Coding System Code Date COMPREHEN METABOLIC PANEL CPT-4 71391 Aug 30, 2014 ASSAY THYROID STIM HORMONE CPT-4 59435 Aug 30, 2014 COMPLETE CBC WAUTO DIFF WBC CPT-4 14939 Aug 30, 2014 OFFICE VISIT EST PATIENT LEVEL 3 CPT-4 42613 Aug 30, 2014 ROUTINE VENIPUNCTURE CPT-4 59927 Aug 30, 2014 Vital Signs Date/Time: Aug 30, 2014 BMI 19.66 Index Weight 121.8 lbs Height 66 in Blood Pressure Diastolic 72 mm Hg Blood Pressure Systolic 106 mm Hg Cardiac Monitoring Heart Rate 66 /min Temperature 97.8 F Respiratory Rate 16 /min Results Name Result Date Reference Range Unit Venipuncture Summary Purpose eClinicalWorks Submission
--- OUTSIDE RECORDS SUMMARY | 2017-03-22 11:29 | XMS REPORT ---
Author Author Wanda Fontenot Organization [employer] Address Unknown Phone Unavailable Care Team Providers Care Identification Technician Name Role Phone Wanda Fontenot CP Unavailable Allergies, Adverse Reactions, Alerts Substance Reaction Event Type Neurontin Info Not Available Drug Allergy Darvocet A500 Info Not Available Drug Allergy Problems Problem Type Condition ICD-9 Code Onset Dates Condition Status Problem Surgical menopause 627.4 Active Problem Smoker 305.1 Active Problem Asthma with allergic rhinitis with acute exacerbation 493.02 Active Assessment Acute frontal sinusitis 461.1 Active Assessment Asthma with allergic rhinitis with acute exacerbation 493.02 Active Problem Asthma 493.90 Active Problem Breast lump 611.72 Active Medications Medication Code System Code Instructions Start Date End Date Status Dosage Albuterol Sulfate HFA [facility] [address]-67 108 (90 Base) MCG/ACT Inhalation every 4 hrs prn wheezeing February 09, 2015 2 puffs as needed Augmentin [facility] [address]-37 875-125 MG Orally twice a day February 09, 2015 February 19, 2015 1 tablet Estradiol [facility] [address]-61 1 MG Orally once a day January 17, 2015 1 tablet Albuterol Sulfate HFA [facility] [address]-16 108 (90 Base) MCG/ACT Inhalation every 4 hrs Aug 30, 2014 2 puffs as needed PredniSONE [facility] [address]-23 10 MG Orally Once a day February 09, 2015 March 05, 2015 6 tablet today then decrease by 1 tablet each day, 5,4,3,2,1 until gone Omeprazole [facility] [address]-96 20 MG Orally once a day Oct 24, 2014 1 capsule ProAir HFA [facility] [address]-87 108 (90 Base) MCG/ACT Inhalation every 4 hrs 2 puffs as needed Procedures Procedure Coding System Code Date OFFICE VISIT EST PATIENT LEVEL 3 CPT-4 29400 February 09, 2015 Vital Signs Date/Time: February 09, 2015 BMI 20.01 Index Weight 124 lbs Height 66 in Blood Pressure Diastolic 70 mm Hg Blood Pressure Systolic 100 mm Hg Cardiac Monitoring Heart Rate 72 /min Temperature 98.6 F Respiratory Rate 18 /min Results No Known Results Summary Purpose eClinicalWorks Submission
--- OUTSIDE RECORDS SUMMARY | 2017-03-22 11:29 | XMS REPORT ---
Author Author FriendBrook Organization [employer] Address Unknown Phone Unavailable Care Team Providers Care Reference And Instruction Librarian Name Role Phone Friend, Brook CP Unavailable Allergies, Adverse Reactions, Alerts Substance Reaction Event Type Neurontin Info Not Available Drug Allergy Darvocet A500 Info Not Available Drug Allergy Chantix vomiting Drug Allergy Problems Problem Type Condition Code Onset Dates Condition Status Problem Unspecified lump in breast N63 Active Problem Cigarette smoker F17.210 Active Problem Mild persistent asthma J45.30 Active Assessment Encounter for removal of sutures Z48.02 Active Assessment Anxiety F41.9 Active Assessment Mild persistent asthma J45.30 Active Medications Medication Code System Code Instructions Start Date End Date Status Dosage Escitalopram Oxalate [facility] [address]-34 10 MG Orally Once a day Dec 18, 2015 1 tablet ProAir HFA [facility] [address]-51 108 (90 Base) MCG/ACT Inhalation every 4 hrs prn 2 puffs as needed Albuterol Sulfate HFA [facility] 29057977177 90 mcg inhaler aerosol Inhalation every 4 hrs prn inhale 2 puffs as needed every 4 hours for wheezeing Advair Diskus [facility] [address]-23 100-50 MCG/DOSE Inhalation Twice a day Dec 18, 2015 1 puff Estradiol [facility] 11188743429 1 TAKE 1 TABLET BY MOUTH ONCE DAILY Misc. Devices ND 0 . spacer for inhaler dx: J45.20 Aug 30, 2015 as directed Procedures Procedure Coding System Code Date OFFICE VISIT EST PATIENT LEVEL 3 CPT-4 38944 Dec 18, 2015 Vital Signs Date/Time: Dec 18, 2015 BMI 18.79 Index Weight 116.4 lbs Height 66 in Blood Pressure Diastolic 78 mm Hg Blood Pressure Systolic 110 mm Hg Cardiac Monitoring Heart Rate 66 /min Temperature 98.2 F Oximetry 99 % Respiratory Rate 16 /min Results Name Result Date Reference Range Unit Abnormality Flag NURSE VISIT-SUTURE/STAPLE REMOVAL Summary Purpose eClinicalWorks Submission
--- OUTSIDE RECORDS SUMMARY | 2017-03-22 11:29 | XMS REPORT ---
Author Author FriendBrook [employer] Address Unknown Phone Unavailable Care Team Providers Care Assistance Coordinator Name Role Phone FriendBrook CP Unavailable Allergies No Known Allergies Problems Problem Type Condition Code Onset Dates Condition Status Problem Mild intermittent asthma J45.20 Active Problem Cigarette smoker F17.210 Active Problem Unspecified lump in breast N63 Active Medications No Known Medications Results No Known Results Summary Purpose eClinicalWorks Submission
--- OUTSIDE RECORDS SUMMARY | 2017-03-22 11:29 | XMS REPORT ---
Author Author FriendBrook [employer] Address Unknown Phone Unavailable Care Team Providers Care Nanny Caregiver Name Role Phone Friend, Brook CP Unavailable [...]
--- OUTSIDE RECORDS SUMMARY | 2017-03-22 11:29 | XMS REPORT ---
Author Author Friend, Brook Organization [employer] Address Unknown Phone Unavailable Care Team Providers Care Supervisor Of Officials Name Role Phone Friend, Brook ESTUARDO Unavailable Allergies, Adverse Reactions, Alerts Substance Reaction Event Type Neurontin Info Not Available Drug Allergy Darvocet A500 Info Not Available Drug Allergy Chantix vomiting Drug Allergy Problems Problem Type Condition Code Onset Dates Condition Status Problem Mild intermittent asthma J45.20 Active Problem Cigarette smoker F17.210 Active Problem Unspecified lump in breast N63 Active Assessment Subcutaneous nodule R22.9 Active Medications Medication Code System Code Instructions Start Date End Date Status Dosage Albuterol Sulfate HFA [facility] 77984785079 90 mcg inhaler aerosol INHALE 2 PUFFS NEEDED EVERY 4 HOURS FOR WHEEZEING Wellbutrin XL [facility] [address]-93 150 MG Orally twice a day Aug 30, 2015 1 tablet in the morning Estradiol [facility] 27419723610 1 TAKE 1 TABLET BY MOUTH ONCE DAILY Misc. Devices ND 0 . spacer for inhaler dx: J45.20 Aug 30, 2015 as directed ProAir HFA [facility] [address]-70 108 (90 Base) MCG/ACT Inhalation every 4 hrs prn 2 puffs as needed Procedures Procedure Coding System Code Date OFFICE VISIT EST PATIENT LEVEL 2 CPT-4 99016 Dec 11, 2015 EXCISE BENIGN LESION +MINISTERIO TRUNK, ARMS, OR LEGS 0.6-1 CM CPT-4 67521 Dec Vital Signs Date/Time: Dec 11, 2015 BMI 18.40 Index Weight 114 lbs Height 66 in Blood Pressure Diastolic 76 mm Hg Blood Pressure Systolic 100 mm Hg Cardiac Monitoring Heart Rate 68 /min Temperature 98.2 F Oximetry 99 % Respiratory Rate 16 /min Results Name Result Date Reference Range Unit Abnormality Flag SURG-EXCISE BENIGN LESION;TRUNK, ARMS OR LEGS 0.6 TO 1.0 CM Summary Purpose eClinicalWorks Submission
--- OUTSIDE RECORDS SUMMARY | 2017-03-22 11:29 | XMS REPORT ---
Author Author Friend, Brook Fountain [facility] Address [address] [place], [place] [address] Care Team Providers Care Tool Engineer Name Role Phone FriendBrook Unavailable [phone] PROBLEMS Type Condition ICD9-CM Code QSD38-NR Code Onset Dates Condition Status SNOMED Code Problem Bipolar disorder F31.9 Active 62087814 Problem Anxiety and depression F41.9 Active 772051544 Problem Cigarette smoker F17.210 Active 18749254 Problem Mild persistent asthma J45.30 Active 521345134 Problem Unspecified lump in breast N63 Active 24298339 ALLERGIES Unknown Allergies SOCIAL HISTORY No smoking Hx information available PLAN OF CARE VITAL SIGNS MEDICATIONS Unknown Medications RESULTS No Results PROCEDURES No Known procedures IMMUNIZATIONS No Known Immunizations
--- OUTSIDE RECORDS SUMMARY | 2017-03-22 11:29 | XMS REPORT ---
Author Author Friend, Brook Fountain [employer] Address Unknown Phone Unavailable Care Team Providers Care Mirror Painter Name Role Phone Friend, Brook CP Unavailable Allergies, Adverse Reactions, Alerts Substance Reaction Event Type Neurontin Info Not Available Drug Allergy Darvocet A500 Info Not Available Drug Allergy Chantix vomiting Drug Allergy Problems Problem Type Condition Code Onset Dates Condition Status Assessment Encounter for smoking cessation counseling Z71.6 Active Assessment Need for influenza vaccination Z23 Active Problem Mild intermittent asthma J45.20 Active Problem Cigarette smoker F17.210 Active Problem Unspecified lump in breast N63 Active Assessment Cigarette smoker F17.210 Active Assessment Surgical menopause on hormone replacement therapy E89.40 Active Assessment Bronchitis with asthma, acute J20.9 Active Assessment Mild intermittent asthma J45.20 Active Medications Medication Code System Code Instructions Start Date End Date Status Dosage Albuterol Sulfate HFA [facility] 50505782379 90 mcg inhaler aerosol INHALE 2 PUFFS NEEDED EVERY 4 HOURS FOR WHEEZEING MethylPREDNISolone (Santiago) [facility] [address]-40 4 MG Orally as directed Aug 30, 2015 Sep 06, 2015 as directed Misc. Devices [facility] 0 . spacer for inhaler dx: J45.20 Aug 30, 2015 as directed Azithromycin [facility] [address]-38 250 MG Orally Once a day Aug 30, 2015 Sep 04, 2015 2 tablets on the first day, then 1 tablet daily for 4 days Estradiol [facility] 29585947830 1 TAKE 1 TABLET BY MOUTH ONCE DAILY Wellbutrin XL [facility] [address]-70 150 MG Orally twice a day Aug 30, 2015 1 tablet in the morning ProAir HFA [facility] [address]-77 108 (90 Base) MCG/ACT Inhalation every 4 hrs prn 2 puffs as needed Procedures Procedure Coding System Code Date *Fluzone, quad, 3+ yrs, 0.5mL CPT-4 66110 Aug 30, 2015 IMMUNIZATION ADMIN CPT-4 29142 Aug 30, 2015 OFFICE VISIT EST PATIENT LEVEL 4 CPT-4 59689 Aug 30, 2015 Vital Signs Date/Time: Aug 30, 2015 BMI 18.66 Index Weight 115.6 lbs Height 66 in Blood Pressure Diastolic 76 mm Hg Blood Pressure Systolic 110 mm Hg Cardiac Monitoring Heart Rate 76 /min Temperature 98.1 F Respiratory Rate 18 /min Results Name Result Date Reference Range Unit Abnormality Flag OTHER-IMMUNIZATION ADMIN Immunizations Vaccine Administration Date *indira Nieves, 3+ yrs, 0.5mL Aug 30, 2015 Summary Purpose eClinicalWorks Submission
--- OUTSIDE RECORDS SUMMARY | 2017-03-22 11:29 | XMS REPORT ---
Author Author FriendBrook [facility] Address [address] [place], [place] [id number] Care Team Providers Care License Inspector Name Role Phone FriendBrook Unavailable [phone] PROBLEMS Type Condition ICD9-CM Code [id number] Code Onset Dates Condition Status SNOMED Code Problem Bipolar disorder F31.9 Active 63943428 Problem Anxiety and depression F41.9 Active 398186474 Problem Cigarette smoker F17.210 Active 11120736 Assessment Gonorrhea A54.9 Oct, Active 37884899 Problem Mild persistent asthma J45.30 Active 147776120 Problem Unspecified lump in breast N63 Active 43514658 ALLERGIES Substance Reaction Event Type Date Status Neurontin Unknown Drug Allergy Oct, Active Darvocet A500 Unknown Drug Allergy Oct, Active Chantix vomiting Drug Allergy Oct, Active SOCIAL HISTORY No smoking Hx information available PLAN OF CARE VITAL SIGNS Height 5 ft 6 in in 2016-10-14 Weight 117.8 lbs 2016-10-14 BMI 19.01 kg/m2 2016-10-14 Temperature 98.1 degrees Fahrenheit 2016-10-14 Heart Rate 60 /min 2016-10-14 Respiratory Rate 18 /min 2016-10-14 Blood pressure systolic 114 mm Hg 2016-10-14 Blood pressure diastolic 78 mm Hg 2016-10-14 MEDICATIONS Medication Instructions Dosage Frequency Start Date End Date Duration Status ProAir HFA 108 (90 Base) MCG/ACT Inhalation every 4 hrs prn 2 puffs as needed Active Albuterol Sulfate HFA 90 mcg inhaler aerosol Inhalation every 4 hrs prn inhale 2 puffs as needed every 4 hours for wheezeing 30 days Active Misc. Devices . spacer for inhaler dx: J45.20 as directed Aug, 30 days Active Risperidone 2 MG Orally Once a day 1 tablet 24h Apr, 30 day(s) Active Estradiol 1 TAKE 1 TABLET BY MOUTH DAILY 90 Active RESULTS No Results PROCEDURES Procedure Date Ordered Related Diagnosis Body Site Ceftriaxone (Rocephin) 250 mg Oct 14, 2016 THERPROPHDIAG INJ, SCIM Oct 14, 2016 IMMUNIZATIONS Vaccine Route Administration Date Status Ceftriaxone (Rocephin) 250 mg IM Intramuscular Oct 14, 2016 Administered
--- OUTSIDE RECORDS SUMMARY | 2017-03-22 11:29 | XMS REPORT ---
Author Author FriendBrook [facility] Address [address] [place], [place] [id number] Care Team Providers Care Supervisor Brine Name Role Phone FriendBrook Unavailable [phone] PROBLEMS Type Condition ICD9-CM Code [id number] Code Onset Dates Condition Status SNOMED Code Assessment Screening for chlamydial disease Z11.8 Nov, Active 833928275 Problem Bipolar disorder F31.9 Active 07620157 Problem Anxiety and depression F41.9 Active 504269489 Problem Cigarette smoker F17.210 Active 37182049 Assessment Vaginal discharge N89.8 Nov, Active 752150432 Problem Mild persistent asthma J45.30 Active 055980999 Problem Unspecified lump in breast N63 Active 38949604 ALLERGIES Substance Reaction Event Type Date Status Neurontin Unknown Drug Allergy Nov, Active Darvocet A500 Unknown Drug Allergy Nov, Active Chantix vomiting Drug Allergy Nov, Active SOCIAL HISTORY No smoking Hx information available PLAN OF CARE Activity Details Pending Test Chlam/GC Male/Fem Mesj-nd-Ethr Urine (genprobe) C-Z11.8,G-Z11.3 Pending Test Genital Wet Prep - send out prn,Reason: VITAL SIGNS Height 5 ft 6 in in 2016-11-13 Weight 116.5 lbs 2016-11-13 BMI 18.80 kg/m2 2016-11-13 Temperature 98.1 degrees Fahrenheit 2016-11-13 Heart Rate 81 /min 2016-11-13 Respiratory Rate 18 /min 2016-11-13 Oximetry 99 % 2016-11-13 Blood pressure systolic 108 mm Hg 2016-11-13 Blood pressure diastolic 78 mm Hg 2016-11-13 MEDICATIONS Medication Instructions Dosage Frequency Start Date End Date Duration Status ProAir HFA 108 (90 Base) MCG/ACT Inhalation every 4 hrs prn 2 puffs as needed Active Misc. Devices . spacer for inhaler dx: J45.20 as directed Aug, 30 days Active Risperidone 2 MG Orally Once a day 1 tablet 24h Apr, 30 day(s) Active Estradiol 1 TAKE 1 TABLET BY MOUTH DAILY 90 Active RESULTS Name Result Date Reference Range Genital Wet Prep - send out 2016-11-13 Genital Wet Prep Source: Genital Collected: 16:20 Chlam/GC Male/Fem Agum-jv-Strf Urine (genprobe) C-Z11.8,G-Z11.3 2016-11-13 Chlam/ GC Nucleic Acid Screen Source: Genital Collected: 11/13/16 16:20 PROCEDURES Procedure Date Ordered Related Diagnosis Body Site SMEAR, WET MOUNT, SALINEINK Nov 13, 2016 CHYLMD TRACH, DNA, AMP PROBE Nov 13, 2016 OFFICE VISIT EST PATIENT LEVEL 3 Nov 13, 2016 N.GONORRHOEAE, DNA, AMP PROB Nov 13, 2016 IMMUNIZATIONS No Known Immunizations
[2017-03-22] MEDS ORDERED: ALBUTEROL/IPRATROPIUM INHAL. 2.5mg-0.5mg/3ml Neb. AEROSOL ONE (11:30)
--- NOTE | 2017-03-22 11:35 | NUR ---
RT HERE FOR AERO TX
--- NOTE | 2017-03-22 11:35 | NUR ---
REPORT TO TESFAYE BRAY
[2017-03-22] MEDS ORDERED: ALBU8.5H INH (11:46)
[2017-03-22] MEDS ORDERED: NO ROUTINE MEDS (11:46)
--- NOTE | 2017-03-22 11:47 | NUR ---
PROVIDER DR HUSAIN IN ROOM W/ PT.
[2017-03-22 12:09] LABS: BASOPHILS % (AUTO) 0.3 % (0-2); EOSINOPHILS # (AUTO) 0.1 T/MM3 (0-0.5); EOSINOPHILS % (AUTO) 0.9 % (0-4); HCT - HEMATOCRIT 41.1 % (36-46); HGB - HEMOGLOBIN 13.8 GM/DL (12-16); IMMATURE GRANULOCYTE # (AUTO) 0.03 T/MM3 (0.00-0.03); IMMATURE GRANULOCYTE % (AUTO) 0.3 % (0.0-0.5); LYMPHOCYTES # (AUTO) 1.4 T/MM3 (1-4.8); LYMPHOCYTES % (AUTO) 11.6 % (23-45); MEAN CORPUSCULAR HGB 31.1 UUG (26-34); MEAN CORPUSCULAR HGB CONC(MCHC 33.6 GM/DL (31-37); MEAN CORPUSCULAR VOLUME 92.6 UM3 (80-100); MEAN PLATELET VOLUME 9.8 UM3 (9.4-12.4); MONOCYTES # (AUTO) 0.6 T/MM3 (0-0.8); MONOCYTES % (AUTO) 5.1 % (0-9.0); NEUTROPHILS #(AUTO)-ABSOLUTE 9.6 T/MM3 (1.8-7.7); NEUTROPHILS % (AUTO) 81.8 % (33-66); RED BLOOD COUNT 4.44 M/MM3 (4.00-5.20); WBC - WHITE BLOOD COUNT 11.7 T/MM3 (4.5-11.0)
--- NOTE | 2017-03-22 12:12 | ERPDOC ---
Departure Disposition Decision Date: March 22, 2017 Disposition Decision Time: 12:15 Disposition: 01 DISCHARGED HOME, SELF-CARE Impression Impression Impression: Primary Impression: Asthma exacerbation Condition: Improved Seen By: Physician only Referrals: SERGIO ERICKSON MD (PCP) Patient Instructions: Moderate and Severe Persistent Asthma (ED) Problems/Meds/Labs Reviewed?: Yes Medications reviewed and manag: Yes Additional Instructions: We have discussed this, you know what to do. If you have any questions feel free to call. Prednisone has refills and you can use a burst and taper as needed if her asthma becomes exacerbated again. I also gave you refills on the Ventolin. Follow up care ordered?: Yes Mental Status: Alert, Oriented Scripts Azithromycin (Zithromax Tri-Santiago) 500 Mg Tablet 1 TAB PO DAILY for 3 Days, TAB Prov: MARU NELSON MD 03/22/17 Albuterol Sulfate (Ventolin HFA 90 mcg/actuation) 18 Gm Hfa.aer.ad 1-2 PUFF ORAL INH Q4H Y for SHORTNESS OF AIR/WHEEZING, #3 INHALER 5 Refills Prov: MARU NELSON MD 03/22/17 Prednisone (Prednisone) 10 Mg Tablet 0 PO TAPERQD, #18 TAB 5 Refills 30 mg daily x3 days 20 mg daily x3 days 10 mg daily x2 days Prov: MARU NELSON MD 03/22/17 HPI - Dyspnea General Chief Complaint: Dyspnea/Respdistress Stated Complaint: SOA Time Seen by Provider: 11:29 HPI - Dyspnea Initial Comments 36-year-old female with history of asthma. She is in the middle of an acute asthma exacerbation, is having difficulty breathing which is obvious on entering the room. She did quit smoking about 2 weeks ago, has been coughing more and bringing up mucus and dark color. She mowed the yard yesterday after noticing that she was starting to have some issues with her breathing, and it worse. Today's become severe and so she is presenting to the ED. She has a very high deductible insurance and was trying to avoid cost of going to the doctor and getting refills on prescriptions. 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 She quit when she became because she was concerned that it would hurt her baby. She came to the same realization with the smoking, recognize that she was hurting herself, and she quit cold turkey 2 weeks ago. However since that time breathing has been more difficult as she has been bringing up more mucus. She did feel like she had elevated temp last night, she does not have an elevated temperature. Allergies: Coded Allergies: gabapentin (Unverified Allergy, Unknown, SEIZURE, 11/23/10) propoxyphene (Unverified Adverse Reaction, Unknown, NAUSEA, 11/23/10) Past History Patient Medical History Problem List Updates: Asthma Patient Surgical History Negative Past Medical History Metabolic: other Surgical History General: appendix Reproductive/: other Vaccines Hx Influenza Vaccination: Yes Hx Pneumococcal Vaccination: No Social History Smoking Status: Former smoker Substance Use Type: does not use Alcohol Intake: none Record Review Pertinent history updated: Yes Review of Systems Pulmonary Respiratory: see HPI All other Systems All Other Systems: Reviewed and Negative Physical Exam General General Nourishment: adult, thin, acute distress Vitals and Pain First Documented Vital Signs Date Time Temp Pulse Resp B/P Pulse Ox O2 Delivery O2 Flow Rate FiO2 03/22/17 11:25 98.1 75 14 116/80 99 Room Air Weight: Kilograms: 52.000 Height (feet): 5 Height (inches): 6.00 Triage Pain Scale: Comments Patient is in obvious distress from dyspnea, she has a look of discomfort and is breathing very rapidly. She does not answer questions as she has trouble talking with this. Normal Exams: Head: Normocephalic w/o trauma CV: Regular rate and rhythm, without murmur or gallop, Pulses 2+ all extremities, capillary refill, <2 seconds all ext., no pedal edema noted Abdomen: Bowel sounds positive, soft, non-tender, non-distended, no hepatosplenomegaly, masses or bruits noted Neurologic: Patient is alert, and oriented, cranial nerves, motor/sensory/ cerebellar, exams w/o gross deficits, to observation Psychiatric: Patient exhibits, appropriate attention, emotion and affect Respiratory (brief) Comments Patient has significant wheezing bilaterally on expiration. Poor air movement. Very rapid breathing. Differential Diagnoses Considering: Other (asthma exacerbation, acute respiratory distress) Progress Results/Orders Orders Procedure Category Date Status Time Cmp - Comprehensive LAB 03/22/17 In Process Metabolic 11:29 Cbc W/Auto LAB 03/22/17 Complete Diff-Reflex Manual 11:29 D-Dimer LAB 03/22/17 In Process 11:29 Chest, Pa & Lateral RAD 03/22/17 Logged 11:29 Iv Lock (Ed Only) EDM 03/22/17 Transmitted 11:29 Normal Saline (Normal PHA 03/22/17 In Process Saline Iv) 11:29 Albuterol/Ipratropium PHA 03/22/17 Complete (Duoneb) 11:30 Methylprednisolone PHA 03/22/17 Complete Sod Succ (Solu-Medrol 11:30 Oxygen Administration EDM 03/22/17 Transmitted 11:29 Albuterol (Ventolin PHA 03/22/17 Verified Hfa) 12:15 Methylprednisolone PHA 03/22/17 Verified Sod Succ (Solu-Medrol 12:15 Ceftriaxone (Rocephin) PHA 03/22/17 Verified 12:15 Lab Results Laboratory Tests Test 03/22/17 12:03 White Blood Count 11.7T/MM3 Red Blood Count 4.44M/MM3 Hemoglobin 13.8GM/DL Hematocrit 41.1% Mean Corpuscular Volume 92.6UM3 Mean Corpuscular Hemoglobin 31.1UUG Mean Corpuscular Hemoglobin Concent 33.6GM/DL RDW Standard Deviation 42.9FL Platelet Count 201T/MM3 Mean Platelet Volume 9.8UM3 Immature Granulocyte % (Auto) 0.3% Neutrophils (%) (Auto) 81.8% Lymphocytes (%) (Auto) 11.6% Monocytes (%) (Auto) 5.1% Eosinophils (%) (Auto) 0.9% Basophils (%) (Auto) 0.3% Absolute Immature Granulocyte (auto 0.03T/MM3 Absolute Neutrophils (auto) 9.6T/MM3 Absolute Lymphocytes (auto) 1.4T/MM3 Absolute Monocytes (auto) 0.6T/MM3 Absolute Eosinophils (auto) 0.1T/MM3 Absolute Basophils (auto) 0.0T/MM3 D-Dimer Pending Turbidity Pending Sodium Level Pending Potassium Level Pending Chloride Level Pending Carbon Dioxide Level Pending Anion Gap Pending Blood Urea Nitrogen Pending Creatinine Pending Glomerular Filtration Rate Calc Pending BUN/Creatinine Ratio Pending Glucose Level Pending Calculated Osmolality Pending Calcium Level Pending Total Bilirubin Pending Icterus Index Pending Aspartate Amino Transf (AST/SGOT) Pending Alanine Aminotransferase (ALT/SGPT) Pending Alkaline Phosphatase Pending Total Protein Pending Albumin Pending Globulin Pending Albumin/Globulin Ratio Pending Chemistry Specimen Hemolysis Pending Medications Current ED Medications Sodium Chloride (Normal Saline IV) 1,000 ml @ 250 mls/hr Q4H ONCE IV ; Start at 11:29; Stop 03/22/17 at 15:28 Albuterol/ Ipratropium (Duoneb) 3 ml O ONCE AEROSOL Last administered on t 11:37; Start 03/22/17 at 11:30; Stop 03/22/17 at 11:32; Status DC Methylprednisolone Sodium Succinate (Solu-Medrol) 125 mg O ONCE IV ; Start at 11:30; Stop 03/22/17 at 11:32; Status DC Progress Progress Patient was given albuterol nebulizer treatment which did improve her breathing. Respiratory spoke with her about the damage smoking to do. Patient took this personally she just quit smoking and she became upset. We spoke for several minutes and she stayed very pleasant and explained her situation. I am going to send her with a prescription of prednisone to use now and with refills so that she does not have to go back to the physician. She does have a very high deductible and is having to pay hill for everything until she gets the deductible. Also wrote refills for her Ventolin. She was given Solu-Medrol 125 mg IM and Rocephin 1 g both IM ED. Also Ventolin HFA. She'll be discharged with the above mentioned prednisone burst and taper and refill. MARU NELSON MD March 22, 2017 12:12
--- NOTE | 2017-03-22 12:14 | NUR ---
INHALER PT GIVEN INHALER DR ORDERED ONE PUFF BEFORE DISCHARGE, PT GIVEN REST OF INHALER AND VERBALIZED UNDERSTANDING OF OPERATION AND DOSAGE.
[2017-03-22] MEDS ORDERED: CEFTRIAXONE 1 GRAM INJECTION IM ONE (12:15)
[2017-03-22] MEDS ORDERED: ALBUTEROL HFA INHALER 8gm ORAL INH ONE (12:15)
[2017-03-22 12:17] LABS: ALBUMIN 4.6 G/DL (3.5-5.0); ALBUMIN/GLOBULIN RATIO 1.9 RATIO (1.1-2.2); ALKALINE PHOSPHATASE 55 U/L (38-126); ALT (SGPT) 35 U/L (9-52); ANION GAP 14 MEQ/L (5-15); AST (SGOT) 23 U/L (14-36); BUN/CREATININE RATIO 25 RATIO (6-26); CALCIUM 9.3 MG/DL (8.4-10.2); CHLORIDE 107 MEQ/L (98-107); CO2 - CARBON DIOXIDE 25 MEQ/L (22-30); CREATININE 0.6 MG/DL (0.7-1.2); GLOMERULAR FILTRATION RATE 114; GLUCOSE 106 MG/DL (65-110); POTASSIUM 3.2 MEQ/L (3.6-5); SODIUM 146 MEQ/L (134-144)
[2017-03-22] MEDS ORDERED: PRED10TA PO (12:20)
[2017-03-22] MEDS ORDERED: AZIT500T2 PO (12:20)
[2017-03-22] MEDS ORDERED: ALBU18HF2 ORAL INH (12:20)
--- OUTSIDE RECORDS SUMMARY | 2017-03-22 12:23 | XMS REPORT | Continuity of Care Document ---
Author Author [facility] Organization [facility] Address Unknown Phone Unavailable Allergies Medications Problems Procedures Results Encounters ACCT No. Visit Date/Time Discharge Status Pt. Type Provider Facility Loc./Unit Complaint [id number] 11/15/2013 10:02:00 11/15/2013 23 :59:59 CLS Outpatient
--- OUTSIDE RECORDS SUMMARY | 2017-03-22 12:23 | XMS REPORT | Continuity of Care Document ---
Author Author [facility] Organization [facility] Address Unknown Phone Unavailable Care Team Providers Care Stuffing Machine Operator Name Role Phone Unverified, Unverified Primary Care Physician Unavailable Source Comments Some departments are not documenting in the electronic medical record. If you do not see the information that you expected, contact Release of Information in the Health Information Management department at [phone] for further assistance in locating additional records.[facility] Active Allergies and Adverse Reactions Allergen Noted [...]
--- OUTSIDE RECORDS SUMMARY | 2017-03-22 12:24 | XMS REPORT ---
Author Author [employer] Organization Unknown Address Unknown Phone Unavailable Care Team Providers Care Caul Dresser Name Role Phone UNASSIGNED DOCTOR , DOCTOR PP [phone] Reason For Visit Chief Complaint SUBCUTANEOUS MASS [...]
[2017-03-22 12:30] VITALS: BP 138/76; PULSE 66; RESP 20; TEMP 98.1; O2SAT 95
--- NOTE | 2017-03-22 12:30 | NUR ---
DISCHARGE PT GIVEN INSTRUCTIONS FOR CONT CARE ASTHMA W/ RX X3 OF PREDNISONE,ALBUTEROL INHALER AND ZITHROMAX. PT VERBALIZED UNDERSTANIND OF CONTENT AND SIGNED, PT LEFT ER AMBULATORY W/O ASSIST, ALERT, DYSPNEA RELIEVED AND CONDITION IMPROVED , VS CHARTED IN NO ACUTE DISTRESS.
== END 2017-03-22 12:30 | disposition home or self-care (01) ==
LOC: ED 11:24
DX: J45.901 Unspecified asthma with (acute) exacerbation (principal); Z87.891 Personal history of nicotine dependence
CPT/HCPCS: 36415; 80053; 85025; 85379; 94640; 96372; 99283; J0696; J2930